=== PATIENT | male | born 1980 | race Caucasian/White ===

== ENCOUNTER 2022-02-09 19:09 | Emergency (ER) | payer OTHER, SELFPAY ==
[2022-02-09 19:17] VITALS: BP 140/84; PULSE 79; RESP 16; TEMP 36.7; O2SAT 100
--- NOTE | 2022-02-09 19:18 | ED.EAR ---
HPI - Ear Problem General Chief complaint: Upper Respiratory Infection Stated complaint: ear infection Source: patient Mode of arrival: ambulatory Limitations: no limitations History of Present Illness HPI Narrative: 41-year-old male presented for complaint of sinus pressure and headache for 2 days. Endorses worsening bilateral ear pain and pressure into the teeth. About 3-4 nights ago had chills and night sweats. Endorses fatigue. He denies shortness of breath, cough, wheezing, nausea, vomiting, diarrhea. He is taking otc cold meds for symptoms. Denies sick contact. MD Complaint: ear pain Related Data Home Medications Medication Instructions Recorded Confirmed warfarin 5 mg tablet 10 mg DAILY 02/09/22 02/09/22 Allergies Allergy/AdvReac Type Severity Reaction Status Date / Time No Known Allergies Allergy Unknown Unverified 12/05/18 17:59 Review of Systems Review of Systems: CONSTITUTIONAL: reports malaise, chills, or fever. EYES: Denies visual changes, redness, or discharge. ENT: Reports ear pain, sinus pain CARDIOVASCULAR: Denies chest pain, palpitations, or edema. RESPIRATORY: Denies cough or dyspnea. GASTROINTESTINAL: Denies abdominal pain, nausea, vomiting, diarrhea SKIN: Denies rash or itching. MUSCULOSKELETAL: Denies myalgia. All systems reviewed & are unremarkable except as noted in HPI and below PMFSH Social History Social History Alcohol intake: current Comments At time of signature, agree with nursing past medical, surgical, social and family history. There is no relevant family history pertinent to the presenting complaint Exam Narrative: GENERAL: Well-appearing, EYES: conjunctivae clear ENT: Nares clear. Mucous membranes moist. TMs pearly hightower with dull light reflex bilaterally, left canal erythematous, bilateral TM scarring; no tragal tenderness. NECK: Supple. No lymphadenopathy CHEST: Clear to auscultation, breath sounds equal. HEART: Regular rate and rhythm. No murmur heard. SKIN: Warm, dry, no rash. NEURO: Alert and oriented x3. PSYCH: Normal mood and affect Course Course Emergency Course: Patient is aware of diagnosis, understands and agrees to treatment plan. Anticipatory guidance given. Patient agrees to follow-up as directed and is aware of reasons to seek care at the emergency department. Portions of this record may have been created with voice recognition software Level of Care: Express Care Visit Vital Signs Vital signs: Vital Signs Temperature 98.0 F 02/09/22 19:17 Pulse Rate 79 02/09/22 19:17 Respiratory Rate 16 02/09/22 19:17 Blood Pressure 140/84 02/09/22 19:17 Pulse Oximetry 100 02/09/22 19:17 Oxygen Delivery Room Air 02/09/22 19:17 Temperature 98.0 F 02/09/22 19:17 Pulse Rate 79 02/09/22 19:17 Respiratory Rate 16 02/09/22 19:17 Blood Pressure 140/84 02/09/22 19:17 Pulse Oximetry 100 02/09/22 19:17 Oxygen Delivery Room Air 02/09/22 19:17 Reviewed Medical Decision Making MDM Narrative Medical decision making narrative: covid negative, result reviewed with pt. Advised supportive measures for URI and signs/symptoms to go to the ER. Pt is appropriate for outpt treatment and f/u. Differential Diagnosis Differential Diagnosis: Coronavirus, strep pharyngitis, allergic rhinitis, upper respiratory tract infection, sinusitis, rhinosinusitis, nasopharyngitis, viral pharyngitis, otitis media, otitis externa, eustachian tube dysfunction, foreign body, cerumen impaction. Vital Signs Vital Signs: Vital Signs Temperature 98.0 F 02/09/22 19:17 Pulse Rate 79 02/09/22 19:17 Respiratory Rate 16 02/09/22 19:17 Blood Pressure 140/84 02/09/22 19:17 Pulse Oximetry 100 02/09/22 19:17 Oxygen Delivery Room Air 02/09/22 19:17 Temperature 98.0 F 02/09/22 19:17 Pulse Rate 79 02/09/22 19:17 Respiratory Rate 16 02/09/22 19:17 Blood Pressure 140
== END 2022-02-09 19:56 | disposition home or self-care (01) ==
PROVIDERS: Emergency Provider Nurse Practitioner Family
DX: J06.9 Acute upper respiratory infection, unspecified (principal); Z20.822 Contact with and (suspected) exposure to COVID-19
CPT/HCPCS: 87426; 99213; C9803; G0463

== ENCOUNTER 2023-10-20 10:59 | Emergency (ER) | payer OTHER, SELFPAY ==
--- NOTE | 2023-10-20 11:00 | ED.URI ---
HPI - URI/Sore Throat General Chief Complaint: Upper Respiratory Infection Stated Complaint: chest cold right ear pain Time Seen by Provider: 10/20/23 11:00 Source: patient Mode of arrival: ambulatory Limitations: no limitations History of Present Illness HPI Narrative: Patient is a 43-year-old male who presents with 1 week of coughing congestion along with right lower broken tooth with pain radiating into right ear. Patient has been taking Mucinex with no relief. Patient does not currently have dentist. Denies any fever, chills, nausea, vomiting, diarrhea. Related Data Home Medications Medication Instructions Recorded Confirmed warfarin 5 mg tablet 10 mg PO DAILY 02/09/22 10/20/23 buprenorphine 8 mg-naloxone 2 mg See Rx Instructions .Route .COMPLEX 10/20/23 10/20/23 sublingual film Allergies Allergy/AdvReac Type Severity Reaction Status Date / Time No Known Allergies Allergy Unknown Verified 10/20/23 11:12 Review of Systems Review of Systems: All systems reviewed & are unremarkable except as noted in HPI and below Constitutional: Constitutional: Denies body ache(s), Denies chills, Denies fatigue, Denies fever(s), Denies headache(s), Denies malaise and Denies weakness Eyes: Eyes: Denies blurry vision, Denies itchy eyes and Denies loss of vision ENT: Reports otalgia, Denies headache(s), Reports mouth pain, Reports nasal congestion, Denies sinus pain and Denies sore throat Cardiovascular: Cardiovascular: Denies chest pain, Denies irregular heart rhythm and Denies dyspnea Respiratory: Respiratory: Reports cough and Denies dyspnea Gastrointestinal: Gastrointestinal: Denies abdominal pain, Denies diarrhea, Denies nausea and Denies vomiting Musculoskeletal: Musculoskeletal: Denies back pain, Denies myalgias and Denies arthralgias Integumentary/Breasts: Skin/Breast: Denies pruritus and Denies rash Neurologic: Denies headache(s), Denies loss of vision and Denies weakness Psychiatric: Psychiatric: Reports no additional psychiatric complaints Endocrine: Endocrine: Denies fatigue Allergic/Immunologic: Allergic/Immunologic: Denies itchy eyes PMFSH Social History Social History Alcohol intake: current Comments At time of signature, agree with nursing past medical, surgical, social and family history. There is no relevant family history pertinent to the presenting complaint. Exam Const: General: cooperative, healthy appearing, comfortable, no acute distress and well nourished Nutritional Appearance: well nourished Orientation/consciousness: patient oriented x3 Limitations: no limitations HENMT: Head: normal to inspection, normocephalic and atraumatic Ears: hearing grossly normal bilaterally, external ears normal, TM's normal bilaterally, EAC's normal and no periauricular adenopathy Face/Nose/Sinus: Normal external nose present, Abnormal mucous membranes and turbinates present erythematous bilateral and diffuse, normal facial exam, sinuses nontender and face symmetric Face and sinus: normal facial exam, sinuses nontender and face symmetric Mouth: Yes Normal oral and palatal mucosa present, Yes lip normal, Yes tongue normal, Yes Normal salivary glands and ducts present, Yes oropharynx normal and Yes moist mucous membranes Teeth and gingiva: dentition normal, abnormal tooth and associated gingiva lower right third molar tender, with associated gingival edema and dentin fractured and poor dentition Throat: posterior oropharynx normal, tonsils normal and uvula midline Eyes: General: appearance normal, both eyes and all related structures Alignment and Position: alignment normal and position normal Periorbital: periorbital findings normal Eyelids: eyelids normal Pupils: Equal, round and reactive pupils present Neck: Neck: normal visual inspection, full ROM, no lymphadenopathy and supple Chest: Chest palpation & inspection: normal inspection of the chest a
[2023-10-20 11:09] VITALS: BP 126/76; PULSE 80; RESP 16; TEMP 36.4; O2SAT 99
== END 2023-10-20 11:30 | disposition home or self-care (01) ==
PROVIDERS: Emergency Provider Nurse Practitioner Family
DX: J06.9 Acute upper respiratory infection, unspecified (principal); K04.7 Periapical abscess without sinus; Z79.01 Long term (current) use of anticoagulants
CPT/HCPCS: 99213; G0463